=== PATIENT | male | born 1990 | race American Indian/Alaskan Native ===

== ENCOUNTER 2018-07-24 22:31 | Emergency (ER) | payer MEDICAID, OTHER ==
[2018-07-24] MEDS ORDERED: Sodium Chloride 0.9% 1,000 ML IV ONE (22:49)
[2018-07-24 22:53] VITALS: BP 128/76; PULSE 110; RESP 22; O2SAT 96
[2018-07-24] MEDS ORDERED: Sodium Chloride 0.9% 1,000 ML ONE (23:03)
[2018-07-24 23:12] LABS: BASO % 0.2 % (0.0-2.0); EOS # 0.1 K/uL (0.0-0.7); EOS % 1.4 % (0.0-4.0); HEMOGLOBIN 12.4 g/dL (12.0-18.0); LYMPH # 0.3 K/uL (1.0-4.3); LYMPH % 4.2 % (20.0-40.0); MEAN CELL VOLUME 93.4 fL (80.0-94.0); MEAN CORPUSCULAR HEMOGLOBIN 31.1 pg (27.0-31.0); MEAN CORPUSCULAR HGB CONC 33.3 g/dL (33.0-37.0); MEAN PLATELET VOLUME 8.1 fL (7.2-11.7); MONO # 1.1 K/uL (0.0-0.8); MONO % 18.3 % (0.0-10.0); NEUT # 4.5 K/uL (1.8-7.0); NEUT % 75.9 % (50.0-75.0); NRBC % 0.2 % (0.0-2.0); PLATELET COUNT 244 K/uL (130-400); RBC 3.98 Mil/uL (4.40-5.90); RED CELL DISTRIBUTION WIDTH 12.3 % (11.5-14.5); WHITE BLOOD COUNT 5.9 K/uL (4.8-10.8)
[2018-07-24 23:32] LABS: ALB/GLOB RATIO 1.4 (1.0-2.1); ALBUMIN 4.3 g/dL (3.5-5.0); ALT/SGPT 38 U/L (21-72); AST/SGOT 33 U/L (17-59); BLOOD UREA NITROGEN 13 mg/dL (9-20); GFR NON-AFRICAN AMERICAN > 60
--- NOTE | 2018-07-24 23:37 | C.PDOC ---
History Of Present Illness 28 year old male presents to the ED for evaluation of fever, chills, headache, cough, congestion, and generalized body aches that had sudden onset this morning. Patient denies vomiting, diarrhea. Time Seen by Provider: 07/24/18 22:49 Chief Complaint (Nursing): Cough, Cold, Congestion History Per: Patient History/Exam Limitations: no limitations Onset/Duration Of Symptoms: Hrs Current Symptoms Are (Timing): Still Present Location Of Pain: Diffuse Myalgias, Headache Associated Symptoms: Fever, Chills, Cough, Nasal Congestion. denies: Vomiting, Diarrhea Additional History Per: Patient Past Medical History Reviewed: Historical Data, Nursing Documentation, Vital Signs Vital Signs: Last Vital Signs Temp 102.3 F H 07/24/18 22:42 Pulse 110 H 07/24/18 22:42 Resp 22 07/24/18 22:42 BP 128/76 07/24/18 22:42 Pulse Ox 96 07/24/18 22:42 - Medical History PMH: Depression Surgical History: No Surg Hx Family History: States: Unknown Family Hx - Social History Hx Alcohol Use: No Hx Substance Use: No - Immunization History Hx Tetanus Toxoid Vaccination: No Hx Influenza Vaccination: No Hx Pneumococcal Vaccination: No Review Of Systems Constitutional: Positive for: Fever, Chills ENT: Positive for: Nose Congestion Respiratory: Positive for: Cough Gastrointestinal: Negative for: Vomiting, Diarrhea Musculoskeletal: Positive for: Other (generalized body aches ) Neurological: Positive for: Headache Physical Exam - Physical Exam Appears: Non-toxic, No Acute Distress Skin: Normal Color, Warm, Dry Head: Atraumatic, Normacephalic Eye(s): bilateral: Other (blind ) Ear(s): Bilateral: Normal Nose: Normal, No Discharge Oral Mucosa: Moist Throat: Normal, No Erythema, No Exudate Neck: Supple Chest: Symmetrical, No Deformity, No Tenderness Cardiovascular: Rhythm Regular, No Murmur Respiratory: Normal Breath Sounds, No Rales, No Rhonchi, No Wheezing Extremity: Normal ROM, Capillary Refill (less than 2 seconds ) Neurological/Psych: Oriented x3, Normal Speech, Normal Cognition ED Course And Treatment - Laboratory Results Result Diagrams: 07/24/18 23:06 07/24/18 23:06 Lab Results: Total Bilirubin 0.4 mg/dL (0.2-1.3) 07/24/18 23:06 AST 33 U/L (17-59) 07/24/18 23:06 ALT 38 U/L (21-72) 07/24/18 23:06 Alkaline Phosphatase 65 U/L (38-126) 07/24/18 23:06 Total Protein 7.4 g/dL (6.3-8.3) 07/24/18 23:06 Albumin 4.3 g/dL (3.5-5.0) 07/24/18 23:06 Globulin 3.1 gm/dL (2.2-3.9) 07/24/18 23:06 Albumin/Globulin Ratio 1.4 (1.0-2.1) 07/24/18 23:06 Lab Interpretation: Abnormal (Influenza A+) O2 Sat by Pulse Oximetry: 96 (on RA) Pulse Ox Interpretation: Normal Progress Note: Bloodwork and flu swab ordered. Toradol IVP, Tylenol PO and IV Fluids given. Reevaluation Time: 23:46 Reassessment Condition: Improved Disposition - Disposition Disposition: HOME/ ROUTINE Disposition Time: 23:46 Condition: STABLE Prescriptions: Oseltamivir Cap [Tamiflu] 75 mg PO BID #9 cap Instructions: Influenza (ED) Forms: [facility] ([place]ian), School Excuse - Clinical Impression Clinical Impression: Influenza A - Scribe Statement The provider has reviewed the documentation as recorded by the Scribe (Radha Herman) Provider Attestation: All medical record entries made by the Scribe were at my direction and personally dictated by me. I have reviewed the chart and agree that the record accurately reflects my personal performance of the history, physical exam, medical decision making, and the department course for this patient. I have also personally directed, reviewed, and agree with the discharge instructions and disposition.
[2018-07-24 23:40] VITALS: TEMP 100.1
[2018-07-25 02:07] LABS: BANDS 1 % (0-2); EOSINOPHIL 3 % (0-4); LYMPHOCYTE 8 % (20-40); MONOCYTE 17 % (0-10); NEUTROPHIL 71 % (50-75); PLATELET ESTIMATE NORMAL (NORMAL); TOTAL CELLS COUNTED 100
== END 2018-07-25 00:47 | disposition home or self-care (01) ==
LOC: C.ER 22:31
DX: J09.X2 Influenza due to identified novel influenza A virus with other respiratory manifestations (principal)
CPT/HCPCS: 80053; 85025; 87804; 96374; 99283; J1885; J7030